=== PATIENT | female | born 1955 | race Caucasian/White ===

== ENCOUNTER 2016-04-25 11:03 | Day surgery (SDC) | payer OTHER ==
[2016-04-22 14:27] VITALS: BMI 23.4
[2016-04-25] VITALS (11 sets, daily range): BP systolic 114–147; BP diastolic 60–87; PULSE 57–78; RESP 12–16; Ht 154.9 cm; Wt 98.2 kg
[~2016-04-25] VITALS: Ht 154.9 cm; Wt 98.2 kg
[~2016-04-25 11:03] MED LIST: ASPI-664 PO; CEFAZOLIN 1 GM INJ ONE; CEFAZOLIN 2 GM/50 ML (PMX) 50 ML IVPB SCH; CRES10 PO; EPHEDrine SULFATE 50 MG/5 ML SYG ONE; HYD25 PO; OMEP20CA16 PO; SOD CHLORIDE 0.9% 1,000 ML IV SCH
[2016-04-25] MEDS ORDERED: BUPIVACAINE 0.25% (MPF) 30 ML INJ ONE (12:52)
--- NOTE | 2016-04-25 13:05 | HPN ---
Date/Time of Note Date/Time of Note DATE: 04/25/16 TIME: 13:05 Interval H&P Admission Note Pt. seen H&P reviewed: No system changes STEVEN CRAIG MD Apr 25, 2016 13:05
[2016-04-25] MEDS ORDERED: LIDOCAINE 2% (SDV) 5 ML INJ ONE (13:09)
[2016-04-25] MEDS ORDERED: MIDAZOLAM 1 MG/ML 2 ML INJ ONE (13:09)
[2016-04-25] MEDS ORDERED: SUCCINYLCHOLINE CHLORIDE 100 MG/5 ML SYG IV ONE (13:09)
[2016-04-25] MEDS ORDERED: ROCURONIUM 50 MG INJ ONE (13:09)
[2016-04-25] MEDS ORDERED: FENTAnyl 50 MCG/ML VIAL ONE (13:09)
[2016-04-25] MEDS ORDERED: PROPOFOL 20 ML ONE (13:09)
[2016-04-25] MEDS ORDERED: FAMOTIDINE 20 MG INJ ONE (13:43)
[2016-04-25] MEDS ORDERED: DEXAMETHASONE 4 MG/ML 1 ML INJ ONE (13:43)
[2016-04-25] MEDS ORDERED: ONDANSETRON 4 MG INJ ONE (13:43)
[2016-04-25] MEDS ORDERED: LABETALOL HCL 20MG INJ ONE (13:44)
[2016-04-25] MEDS ORDERED: HYDROmorphONE 2 MG/ML SYG ONE (13:57)
[2016-04-25] MEDS ORDERED: HYDROmorphONE (0.2 MG/ML) 10ML SYG IV PRN ×3 (14:00)
[2016-04-25] MEDS ORDERED: DIPHENHYDRAMINE 50 MG INJ IV PRN (14:00)
[2016-04-25] MEDS ORDERED: ONDANSETRON 4 MG INJ IV PRN ×2 (14:00→14:30)
[2016-04-25] MEDS ORDERED: OXYCODONE/ACETAMINOPHEN (5/325) TAB PO PRN (14:00)
[2016-04-25] MEDS ORDERED: PROCHLORPERAZINE 10 MG INJ IV PRN (14:00)
[2016-04-25] MEDS ORDERED: MEPERIDINE 25 MG INJ IV PRN (14:00)
[2016-04-25] MEDS ORDERED: FENTAnyl 50 MCG/ML VIAL IV PRN (14:00)
--- NOTE | 2016-04-25 14:27 | OPR ---
Date/Time of Note Date/Time of Note DATE: 04/25/16 TIME: 14:22 Operative Report Procedure Date: Apr 25, 2016 Preoperative Diagnosis Chronic cholecystitis/cholelithiasis Postoperative Diagnosis Chronic cholecystitis/cholelithiasis Operation Performed Laparoscopic cholecystectomy Surgeon: STEVEN CRAIG MD Anesthesia: general Anesthesiologist: LAURENCE OSCAR MD Estimated Blood Loss: minimal Specimens Gallbladder Complications: None Pt Condition Post Procedure: stable Disposition: PACU Indications The patient is a obese 60-year-old female who presented to the office with intermittent right upper quadrant and left upper quadrant abdominal pain. The patient had clinical signs and symptoms of chronic cholecystitis and biliary colic which was confirmed via a CT scan of the abdomen and pelvis which showed multiple gallstones. The patient was scheduled for laparoscopic cholecystectomy ; possible open as definitive treatment to prevent further sequelae of gallstone disease which include but are not limited to: Gangrenous cholecystitis , choledocholithiasis, gallstone pancreatitis, ascending cholangitis, etc. All risks and benefits of the procedure including but not limited to: Wound infection, excessive bleeding, common bile duct injury, postoperative biliary leak, retained common bile duct stone, injury to intra-abdominal organs, conversion to open procedure etc. were all explained to the patient in full detail. We also discussed the possibility that cholecystectomy may not fully resolved all of her symptoms and complaints. She fully understood and wished to proceed with the procedure. Informed consent was therefore obtained. Operative Findings Gallbladder filled with gallstones with changes of chronic cholecystitis Procedure Description The patient was operating room and placed supine on the operating table. Bilateral sequential compression devices were placed on both lower extremities. A dose of broad-spectrum perioperative intravenous antibiotics was given. After the induction of smooth general endotracheal anesthesia the patient's abdomen was prepped and draped in the standard surgical fashion. After performance of the surgical timeout a 5 mm incision was made in the inferior umbilicus and a Veress needle was used to access the intra-abdominal cavity atraumatically. Pneumoperitoneum was then obtained and the Veress needle was exchanged for a 5 mm trocar through which a 5 mm laparoscope was placed. Three further working ports were then placed a 12 mm port in the sub-xiphoid region and two 5 mm ports in the right upper quadrant. All port sites were anesthetized with 0.25% Marcaine with epinephrine prior to incision. The gallbladder was identified in the right upper quadrant. It was very long and filled with stones. Using atraumatic graspers the gallbladder was grasped and retracted superiorly and laterally exposing the area of Rolon's pouch. Dissection was begun in this area using a combination of blunt dissection and hook electrocautery. The cystic duct was identified as it entered straight into the neck of the gallbladder. It was dissected free of surrounding tissues and clipped proximally and distally 3 and transected using EndoShears. Dissection was then continued posteriorly. The cystic artery was identified and dissected free of surrounding tissues. It too was clipped proximally and distally 2 and transected using EndoShears. The gallbladder was then dissected off the liver bed using electrocautery. There was scarring of the gallbladder to its attachment to the liver bed. Once completely free the gallbladder was placed in an Endo Catch bag and withdrawn through the subxiphoid and passed off the field as specimen. The incision had to be enlarged to accommodate the gallbladder and the many stones within it. Hemostasis was then inspected for and noted to be adequate. The abdomen was then irrigated with several liters of warm normal saline and the irrigant returned crystal clear. Pneumoperitoneum was then released and all trochars were withdrawn under direct vision. The fascia of the subxiphoid port site was reapproximated using 0 Vicryl sutures in running fashion. The subcutaneous tissues were irrigated with more warm normal saline and further local anesthesia was applied around the skin of the incision sites. The skin was then reapproximated using 4-0 Monocryl sutures in subcuticular fashion. The incisions were cleaned and Dermabond was applied to the incisions and the patient was awoken from anesthesia and transported to the recovery room in stable condition. All counts were correct at the end of the case 2. STEVEN CRAIG MD Apr 25, 2016 14:27
[2016-04-25] MEDS ORDERED: HYDROCODONE/APAP (5/325) TAB PO PRN ×2 (14:30)
[2016-04-25] MEDS ORDERED: morphine 2 MG INJ IV PRN (14:30)
== END 2016-04-25 17:00 | disposition home or self-care (01) ==
LOC: SDS 11:03
PROVIDERS: ATTEND Surgery
DX: K80.10 Calculus of gallbladder with chronic cholecystitis without obstruction (principal); I10 Essential (primary) hypertension; E78.5 Hyperlipidemia, unspecified; E66.01 Morbid (severe) obesity due to excess calories; Z68.41 Body mass index [BMI] 40.0-44.9, adult
CPT/HCPCS: 47562; 88304; J0690; J1100; J1170; J2175; J2250; J2405; J3010; Z7512; Z7610; J0330

== ENCOUNTER 2016-08-08 08:53 | Emergency (ER) | payer OTHER ==
[~2016-08-08] VITALS: Ht 157.5 cm; Wt 60.0 kg
[~2016-08-08 08:53] MED LIST changes: -CEFAZOLIN 1 GM INJ ONE; -CEFAZOLIN 2 GM/50 ML (PMX) 50 ML IVPB SCH; -EPHEDrine SULFATE 50 MG/5 ML SYG ONE; -SOD CHLORIDE 0.9% 1,000 ML IV SCH
[2016-08-08 08:54] VITALS: Ht 157.5 cm; Wt 60.0 kg
[2016-08-08] MEDS ORDERED: LIDOCAINE/MYLANTA 40 ML BTL PO STA (09:16)
[2016-08-08] MEDS ORDERED: HYDR-906 PO (09:21)
[2016-08-08] MEDS ORDERED: BECL8.7A5 INH (09:21)
[2016-08-08] MEDS ORDERED: GABA300C16 PO (09:21)
[2016-08-08] MEDS ORDERED: HYDR200T39 PO (09:21)
[2016-08-08] MEDS ORDERED: CLOP75TA4 PO (09:21)
[2016-08-08] MEDS ORDERED: IPRA3AMP INHALATION (09:21)
[2016-08-08] MEDS ORDERED: CARV12.598 PO (09:21)
[2016-08-08] MEDS ORDERED: DULO20CA17 PO (09:21)
[2016-08-08] MEDS ORDERED: DULO30CA47 PO (09:21)
[2016-08-08] MEDS ORDERED: ACET1TAB40 PO (09:21)
[2016-08-08] MEDS ORDERED: AMLO-145 PO (09:21)
[2016-08-08] MEDS ORDERED: OMEP20CA16 PO (09:21)
[2016-08-08 09:33] LABS: ADD SCAN DIFF NO
[2016-08-08 09:40] LABS: BASOPHIL # 0.1 10^3/ul (0.0-0.1); EOSINOPHILS # 0.2 10^3/ul (0.0-0.5); EOSINOPHILS % 3.5 % (0.0-7.0); HEMATOCRIT 39.1 % (37.0-47.0); HEMOGLOBIN 13.7 g/dl (12.0-16.0); LYMPHOCYTES # 2.8 10^3/ul (0.8-2.9); LYMPHOCYTES % 47.2 % (15.0-51.0); MEAN CORPUSCULAR HEMOGLOBIN 31.8 pg (29.0-33.0); MEAN CORPUSCULAR VOLUME 90.7 fl (82.0-101.0); MEAN PLATELET VOLUME 9.7 fl (7.4-10.4); MONOCYTE # 0.4 10^3/ul (0.3-0.9); MONOCYTES % 6.2 % (0.0-11.0); NEUTROPHIL # 2.5 10^3/ul (1.6-7.5); NEUTROPHILS % 41.4 % (39.0-77.0); PLATELET COUNT 264 10^3/UL (140-415); RED BLOOD COUNT 4.31 10^6/ul (4.20-5.40); RED CELL DISTRIBUTION WIDTH 11.9 % (11.5-14.5)
--- NOTE | 2016-08-08 10:01 | RADRPT ---
PROCEDURE: CT Abdomen and Pelvis without contrast. CLINICAL INDICATION: Left flank pain TECHNIQUE: CT scan of the abdomen and pelvis without contrast was performed on a multidetector hig h-resolution CT scanner. The patient was scanned without intravenous contrast. Coronal and sagittal reformatted images were obtained from the axial source images. Images were reviewed on a high-resol [employer] PACS workstation. The total exam CTDI equals 7.59 mGy and the total exam DLP equals 455.56 mGy -cm. One or more of the following dose reduction techniques were used: Automated exposure control. Adjustment of the mA and/or kV according to patient size. Use of iterative reconstruction technique. COMPARISON: None FINDINGS: CT abdomen: The lung bases are remarkable for posterior dependent atelectasis. The heart size is normal, withou t pericardial thickening or effusion. The liver is normal in size and density without focal mass or intrahepatic biliary dilatation. The spleen is normal in size and homogeneous in density. The sto mach is partially collapsed, but is grossly unremarkable. The pancreas as visualized is normal. Th e gallbladder is surgically absent. There is no evidence for biliary dilatation. The adrenal glands are symmetric and normal. The kidneys are symmetrically unremarkable as well. No renal calculus o r obstructive uropathy or mass lesion is seen. The aorta is of normal caliber. There is no retroperitoneal lymphadenopathy. The jaqueline hepatis reg ion is clear. The bowel and mesentery, as visualized, are equally unremarkable. CT pelvis: The small bowel loops situated within the pelvis are unremarkable. The patient is status post hyste rectomy. The pelvic sidewalls and inguinal regions are clear. The sigmoid colon and rectum are unr emarkable. No mass, lymphadenopathy, or free fluid is seen. No acute inflammation is seen. The march rrounding osseous structures are remarkable for degenerative spondylosis of the spine. No osteolyti c or osteoblastic lesion is detected. IMPRESSION: 1. No mass, lymphadenopathy, or focal acute inflammatory process is identified. 2. No urolithiasis. No hydronephrosis. 3. Status post cholecystectomy. No biliary ductal dilatation. RPTAT: BB .Mariam Ness MD, MD Date Time Electronically viewed and signed by .Mariam Ness MD, MD on 08/08/2016 10:01 .O/
[2016-08-08 10:06] LABS: ALBUMIN 4.9 g/dl (3.3-4.9); ALBUMIN/GLOBULIN RATIO 1.68; BILIRUBIN,INDIRECT 0.1 mg/dl (0-1.1); BILIRUBIN,TOTAL 0.1 mg/dl (0.2-1.3); CREATININE 0.54 mg/dl (0.44-1.00); TOTAL PROTEIN 7.8 g/dl (6.1-8.1)
[2016-08-08] MEDS ORDERED: HYD25 PO (10:15)
[2016-08-08] MEDS ORDERED: CRES10 PO (10:15)
[2016-08-08] MEDS ORDERED: HYDR-902 PO (11:28)
[2016-08-08] MEDS ORDERED: OMEP40CA6 PO (11:28)
--- NOTE | 2016-08-08 11:37 | ERD ---
ER Documentation Chief Complaint Date/Time DATE: 08/08/16 TIME: 11:30 Chief Complaint LEFT QUADRANT PAIN SINCE MONDAY , GOT WORSE HPI 60-year-old female who complains of left upper quadrant pain for the past 3 days. The patient has a history of gastritis and says it feels similar. The pain is hurting and sometimes worse after meals. No nausea vomiting diarrhea no chest pain or shortness of breath. Pain is nonradiating. Patient says she has had off and on for a while but is never had it constantly there for the past 3 days. Patient does admit to eating highly acidic foods lately ROS All systems reviewed and are negative except as per history of present illness. Medications Home Meds Active Scripts Omeprazole* (Omeprazole*) 40 Mg Capsule., 40 MG PO DAILY, #21 CAP Prov:MARJORIE MTZ DO 08/08/16 Hydrocodone/Acetaminophen ([place] 10-325 Tablet) 1 Each Tablet, 1 TAB PO Q6H Y for PAIN, #20 TAB Prov:MARJORIE MTZ DO 08/08/16 Reported Medications Rosuvastatin Calcium* (Crestor*) 10 Mg Tablet, 10 MG PO QHS, #30 TAB 08/08/16 Hydrochlorothiazide* (Hydrochlorothiazide*) 25 Mg Tab, 25 MG PO DAILY, #30 TAB 08/08/16 Omeprazole* (Omeprazole*) 20 Mg Capsule.dr, 20 MG PO DAILY, #30 CAP 08/08/16 Aspirin* (Aspirin* EC) 81 Mg Tablet., 81 MG PO DAILY, TAB 10/04/13 Discontinued Reported Medications Hydrocodone/Acetaminophen ([place] 5-325 Tablet) 1 Each Tablet, 0.5 TAB PO, TAB 08/08/16 Gabapentin* (Gabapentin*) 300 Mg Capsule, 300 MG PO HS, #60 CAP 08/08/16 Beclomethasone Dip* (Qvar 80*) 7.3 Gm Inha, 2 PUFF INH BID, #1 INHALER 08/08/16 Amlodipine Besylate* (Amlodipine Besylate*) 5 Mg Tablet, 5 MG PO DAILY, #30 TAB 08/08/16 Omeprazole* (Omeprazole*) 20 Mg Capsule.dr, 20 MG PO DAILY, #30 CAP 08/08/16 Acetaminophen with Codeine (Acetaminophen-Cod #3 Tablet) 1 Each Tablet, 1 TAB PO Q6H, #7 TAB 08/08/16 Ipratropium-Albuterol (Ipratropium-Albuterol) 0.5-3 Mg/3 Ml Ampul.neb, 3 ML INHALATION Q6, #30 VIAL 08/08/16 Clopidogrel Bisulfate* (Clopidogrel Bisulfate*) 75 Mg Tablet, 75 MG PO DAILY, # 30 TAB 08/08/16 Duloxetine Hcl* (Duloxetine Hcl*) 30 Mg Capsule.dr, 30 MG PO DAILY, #30 CAP 08/08/16 Duloxetine Hcl* (Duloxetine Hcl*) 20 Mg Capsule.dr, 20 MG PO DAILY, #30 CAP 08/08/16 Hydroxychloroquine Sulfate* (Hydroxychloroquine Sulfate*) 200 Mg Tablet, 200 MG PO DAILY, TAB 08/08/16 Carvedilol* (Coreg*) 12.5 Mg Tablet, 12.5 MG PO BID, #60 TAB 08/08/16 Hydrochlorothiazide* (Hydrochlorothiazide*) 25 Mg Tab, 25 MG PO DAILY, #30 TAB 04/22/16 Rosuvastatin Calcium* (Crestor*) 10 Mg Tablet, 10 MG PO HS, TAB 10/04/13 Omeprazole* (Omeprazole*) 20 Mg Capsule.dr, 20 MG PO BID, CAP 10/04/13 Allergies Allergies: Coded Allergies: No Known Allergy (Unverified , 08/08/16) PMhx/Soc Medical and Surgical Hx: pt denies Medical Hx, pt denies Surgical Hx Hx Neurological Disorder: No Hx Respiratory Disorders: No Hx Cardiac Disorders: No Hx Psychiatric Problems: No Hx Miscellaneous Medical Probl: No Hx Alcohol Use: No Hx Substance Use: No Hx Tobacco Use: Yes Smoking Status: Never smoker FmHx Family History: No coronary disease Physical Exam Vitals Vital Signs Date Time Temp Pulse Resp B/P Pulse Ox O2 Delivery O2 Flow Rate FiO2 08/08/16 08:54 98.3 89 16 160/85 100 Physical Exam Const: Well-developed, well-nourished Head: Atraumatic, normocephalic Eyes: Normal Conjunctiva, PERRLA, EOMI, normal sclera, no nystagmus ENT: Normal External Ears, Nose and Mouth, moist mucus membranes. Neck: Full range of motion. No meningismus, no lymphadenopathy. Resp: Clear to auscultation bilaterally, no wheezing, rhonchi, rales Cardio: Regular rate and rhythm, no murmurs, S1 S2 present Abd: Soft, mild left upper quadrant tenderness, non distended. Normal bowel sounds, no guarding or rebound, no pulsitile abdominal masses or bruits Skin: No petechiae or rashes, no ecchymosis , no maculopapular rash Back: No midline or flank tenderness Ext: No cyanosis, or edema, FROM x 4, normal inspection, neurovascularly intact x 4 Neur: Awake and alert, STR 5/5 x 4, sensation intact x 4, no focal findings, cerebellum intact Psych: Normal Mood and Affect Result Diagram: 08/08/1691908/08/16919 Results 24 hrs Laboratory Tests Test 08/08/16 09:20 White Blood Count 6.010^3/ul Red Blood Count 4.3110^6/ul Hemoglobin 13.7g/dl Hematocrit 39.1% Mean Corpuscular Volume 90.7fl Mean Corpuscular Hemoglobin 31.8pg Mean Corpuscular Hemoglobin Concent 35.0g/dl Red Cell Distribution Width 11.9% Platelet Count 54306^3/UL Mean Platelet Volume 9.7fl Neutrophils % 41.4% Lymphocytes % 47.2% Monocytes % 6.2% Eosinophils % 3.5% Basophils % 1.0% Nucleated Red Blood Cells % 0.0/100WBC Neutrophils # 2.510^3/ul Lymphocytes # 2.810^3/ul Monocytes # 0.410^3/ul Eosinophils # 0.210^3/ul Basophils # 0.110^3/ul Nucleated Red Blood Cells # 0.010^3/ul Sodium Level 144mmol/L Potassium Level 4.0mmol/L Chloride Level 111mmol/L Carbon Dioxide Level 23mmol/L Anion Gap 14 Blood Urea Nitrogen 16mg/dl Creatinine 0.54mg/dl Glucose Level 126mg/dl Calcium Level 9.0mg/dl Total Bilirubin 0.1mg/dl Direct Bilirubin 0.00mg/dl Indirect Bilirubin 0.1mg/dl Aspartate Amino Transf (AST/SGOT) 28IU/L Alanine Aminotransferase (ALT/SGPT) 36IU/L Alkaline Phosphatase 76IU/L Total Protein 7.8g/dl Albumin 4.9g/dl Globulin 2.90g/dl Albumin/Globulin Ratio 1.68 Current Medications Medications (Trade) Dose Ordered Sig/Elida Route PRN Reason Start Time Stop Time Status Last Admin Dose Admin Miscellaneous Medication (Gi Cocktail (2)) 40 ml ONCE STAT PO 08/08/16 09:16 08/08/16 09:18 DC 08/08/16 09:30 Procedures/MDM PROCEDURE: CT Abdomen and Pelvis without contrast. CLINICAL INDICATION: Left flank pain TECHNIQUE: CT scan of the abdomen and pelvis without contrast was performed on a multidetector high-resolution CT scanner. The patient was scanned without intravenous contrast. Coronal and sagittal reformatted images were obtained from the axial source images. Images were reviewed on a high-resolution PACS workstation. The total exam CTDI equals 7.59 mGy and the total exam DLP equals 455.56 mGy-cm. One or more of the following dose reduction techniques were used: Automated exposure control. Adjustment of the mA and/or kV according to patient size. Use of iterative reconstruction technique. COMPARISON: None FINDINGS: CT abdomen: The lung bases are remarkable for posterior dependent atelectasis. The heart size is normal, without pericardial thickening or effusion. The liver is normal in size and density without focal mass or intrahepatic biliary dilatation. The spleen is normal in size and homogeneous in density. The stomach is partially collapsed, but is grossly unremarkable. The pancreas as visualized is normal. The gallbladder is surgically absent. There is no evidence for biliary dilatation. The adrenal glands are symmetric and normal. The kidneys are symmetrically unremarkable as well. No renal calculus or obstructive uropathy or mass lesion is seen. The aorta is of normal caliber. There is no retroperitoneal lymphadenopathy. The jaqueline hepatis region is clear. The bowel and mesentery, as visualized, are equally unremarkable. CT pelvis: The small bowel loops situated within the pelvis are unremarkable. The patient is status post hysterectomy. The pelvic sidewalls and inguinal regions are clear. The sigmoid colon and rectum are unremarkable. No mass, lymphadenopathy , or free fluid is seen. No acute inflammation is seen. The surrounding osseous structures are remarkable for degenerative spondylosis of the spine. No osteolytic or osteoblastic lesion is detected. IMPRESSION: 1. No mass, lymphadenopathy, or focal acute inflammatory process is identified. 2. No urolithiasis. No hydronephrosis. 3. Status post cholecystectomy. No biliary ductal dilatation. RPTAT: BB .aMriam Ness MD, Date Time Electronically viewed and signed by .Mariam Ness MD, on 08/08/2016 10:01 .O/ CC: MARJORIE MTZ DO Patient likely has gastritis again. Discharge home with omeprazole and Lortab and low acid diet Departure Diagnosis: Primary Impression: Gastritis Gastritis type: unspecified gastritis Chronicity: unspecified Gastritis bleeding: without bleeding Qualified Code: K29.70 - Gastritis without bleeding, unspecified chronicity, unspecified gastritis type Condition: Stable Patient Instructions: Abdominal Pain, Unknown Cause, (Female), Gastritis Vs. Ulcer Referrals: NO PRIMARY,CARE PHYSICIAN (PCP) MARJORIE MTZ DO Aug 08, 2016 11:37
== END 2016-08-08 12:06 | disposition home or self-care (01) ==
LOC: E/R 08:53
DX: K29.70 Gastritis, unspecified, without bleeding (principal); Z79.82 Long term (current) use of aspirin
CPT/HCPCS: 74176; 80053; 85025; Z7610; 36415